=== PATIENT | male | born 1960 | race Caucasian/White ===

== ENCOUNTER 2018-05-18 05:12 | Inpatient (IN) | payer BC ==
--- NOTE | 2018-05-18 05:17 | PDOC ---
History of Present Illness - General Chief Complaint: Pain, Acute Stated Complaint: ABD PAIN/N/V Time Seen by Provider: 05/18/18 05:17 History Source: Patient Exam Limitations: No Limitations - History of Present Illness Initial Comments: 05/18/18 05:41 Pt presents to the ED complaining of a one day history of L sided abdominal pain , nausea and vomiting. Pain is localized to the left side and is worse in his LLQ. He describes the pain as severe, stabbing and constant. Patient is also complaining of multiple episodes of billious vomiting. States that his last BM was two days ago and he is uncertain if he passed gas yesterday. Denies history of abdominal surgeries. Denies testicular pain. Denies urinary complaints. 05/18/18 06:04 05/18/18 06:05 Past History - Past Medical History Allergies/Adverse Reactions: Allergies Allergy/AdvReac Type Severity Reaction Status Date / Time heparin Allergy Intermediate Rash Verified 05/22/18 00:16 Home Medications: Ambulatory Orders Levothyroxine [Synthroid -] 125 mcg PO DAILY 05/18/18 Amox-Tr/K Cl [Augmentin - 875Mg Tablet] 1 tab PO BID #20 tablet 05/22/18 Review of Systems - Review of Systems Able to Perform ROS?: Yes Is the patient limited Spanish proficient: No Constitutional: Yes: Malaise HEENTM: No: Eye Pain, Blurred Vision, Tearing, Recent change in vision, Double Vision, Cataracts, Ear Pain, Ocular Prothesis, Ear Discharge, Nose Pain, Nose Congestion, Tinnitus, Nose Bleeding, Hearing Loss, Throat Pain, Throat Swelling , Mouth Pain, Dental Problems, Difficulty Swallowing, Mouth Swelling, Other Respiratory: No: Cough, Orthopnea, Shortness of Breath, SOB with Exertion, SOB at Rest, Stridor, Wheezing, Productive cough, Hemoptysis, Other Cardiac (ROS): No: Chest Pain, Edema, Irregular Heart Rate, Lightheadedness, Palpitations, Syncope, Chest Tightness, Other ABD/GI: Yes: Constipated, Nausea, Vomiting, Abdominal cramping : No: Burning, Dysuria, Discharge, Frequency, Flank Pain, Hematuria, Incontinence, Pain, Urgency, Testicular Mass, Testicular Swelling, Lesions, Testicular Pain, Other Musculoskeletal: No: Back Pain, Gout, Joint Pain, Joint Swelling, Muscle Pain, Muscle Weakness, Neck Pain, Joint Stiffness, Other All Other Systems: Reviewed and Negative *Physical Exam - Physical Exam General Appearance: Yes: Nourished, Appropriately Dressed, Moderate Distress HEENT: positive: Normal ENT Inspection, Normal Voice Neck: positive: Supple Respiratory/Chest: positive: Lungs Clear, Normal Breath Sounds Cardiovascular: positive: Regular Rhythm, Regular Rate, S1, S2 Gastrointestinal/Abdominal: positive: Tender (diffuse left sided tenderness without guarding or rebound. extremely tender in the LLQ), Soft Musculoskeletal: positive: Normal Inspection. negative: CVA Tenderness, CVA Tenderness (R), CVA Tenderness (L), Decreased Range of Motion, Muscle Spasm, Vertebral Tenderness, Other Extremity: positive: Normal Inspection, Normal Range of Motion Integumentary: positive: Normal Color, Dry, Warm Neurologic: positive: belt sander stone II-XII NML intact, Fully Oriented, Alert, Normal Mood/ Affect ED Treatment Course - LABORATORY CBC & Chemistry Diagram: 05/22/18 07:15 05/22/18 07:15 Medical Decision Making - Medical Decision Making 05/18/18 06:07 Pt presents to the ED complaining of the acute onset of severe LLQ pain, nausea and vomiting. Tender in the LLQ. Differential includes diverticulitis, abscess, intestinal obstruction, less likely gastroenteritis or urinary infection. Will check labs and CT abdomen pelvis to evaluate for intraabdominal pathology. Will give pain and nausea control and reassess. *DC/Admit/Observation/Transfer Diagnosis at time of Disposition: Diverticulitis - Discharge Dispostion Condition at time of disposition: Stable Decision to Admit order: Yes - Prescriptions - Referrals - Patient Instructions - Post Discharge Activity
[2018-05-18] MEDS ORDERED: morphine CARPU-JECT 4 MG/1 ML DISP.SYRIN IVPUSH ONE ×2 (05:38→07:42)
[2018-05-18] MEDS ORDERED: ONDANSETRON 4 MG/2 ML VIAL IVPUSH ONE (05:40)
[2018-05-18] MEDS ORDERED: morphine CARPU-JECT 10 MG/1 ML DISP.SYRIN ONE (05:42)
[2018-05-18] MEDS ORDERED: ONDANSETRON 4 MG/2 ML VIAL ONE (05:42)
[2018-05-18 06:43] LABS: BASO % 0.5 % (0-2.0); EOS % 0.2 % (0-4.5); HEMOGLOBIN 16.4 GM/dL (11.7-16.9); LYMPH % 8.6 % (8-40); MCH 31.9 pg (25.7-33.7); MCHC 34.8 g/dl (32.0-35.9); MEAN CELL VOLUME 91.8 fl (80-96); MEAN PLT VOLUME 9.2 fl (7.5-11.1); MONO % 6.7 % (3.8-10.2); PLATELET COUNT 300 K/MM3 (134-434); RBC 5.13 M/mm3 (4.00-5.60); RDW 13.3 % (11.9-15.9); WHITE BLOOD COUNT 28.5 K/mm3 (4.0-10.0)
[2018-05-18 07:15] LABS: ALBUMIN 3.4 g/dl (3.4-5.0); ALK PHOS 59 U/L (45-117); ANION GAP 13 MMOL/L (8-16); BILIRUBIN,TOTAL 1.5 mg/dL (0.2-1); BLOOD UREA NITROGEN 15 mg/dL (7-18); CALCIUM 8.6 mg/dL (8.5-10.1); CHLORIDE 103 mmol/L (98-107); CO2 21 mmol/L (21-32); GLUCOSE,RANDOM 109 mg/dL (74-106); LIPASE 163 U/L (73-393); POTASSIUM 3.4 mmol/L (3.5-5.1); SGOT/AST 14 U/L (15-37); SGPT/ALT 23 U/L (13-61); SODIUM 137 mmol/L (136-145); TOT PROT 6.8 g/dl (6.4-8.2)
[2018-05-18] MEDS ORDERED: morphine SULFATE 4 MG/ML VIAL ONE (07:47)
[2018-05-18] MEDS ORDERED: SODIUM CHLORIDE 0.9% 1000 ML INFUS.BAG IV ONE (08:13)
[2018-05-18] MEDS ORDERED: ACETAMINOPHEN 1000 MG/100 ML VIAL (NON FORMULARY) IVPB ONE (08:14)
[2018-05-18] MEDS ORDERED: ACETAMINOPHEN INJECTION 100 ML IVPB ONE (08:18)
--- NOTE | 2018-05-18 08:27 | PDOC ---
*Physical Exam - Vital Signs Last Vital Signs Temp Pulse Resp BP Pulse Ox 99.4 F 117 H 20 129/88 97 05/18/18 07:49 05/18/18 07:49 05/18/18 05:17 05/18/18 07:49 05/18/18 07:49 - Physical Exam General Appearance: Yes: Nourished Neck: positive: Other Respiratory/Chest: positive: Normal Breath Sounds Cardiovascular: positive: Regular Rhythm, S1, S2 Gastrointestinal/Abdominal: positive: Tender (llq ttp ) Extremity: positive: Normal Inspection Integumentary: positive: Normal Color, Dry, Warm Neurologic: positive: Fully Oriented, Alert Heart Score/ECG Review #1 General ECG Interpretation: Sinus Rhythm, Normal Rate (98), Normal Intervals, No acute ischemic changes ED Treatment Course - LABORATORY CBC & Chemistry Diagram: 05/18/18 06:02 05/18/18 06:02 - ADDITIONAL ORDERS Additional order review: Laboratory Results 05/18/18 05/18/18 06:02 06:02 Sodium 137 Potassium 3.4 L Chloride 103 Carbon Dioxide 21 Anion Gap 13 BUN 15 Creatinine 1.0 Creat Clearance w eGFR > 60 Random Glucose 109 H Lactic Acid 0.7 Calcium 8.6 Total Bilirubin 1.5 H AST 14 L ALT 23 Alkaline Phosphatase 59 Total Protein 6.8 Albumin 3.4 Lipase 163 05/18/18 06:02 RBC 5.13 MCV 91.8 MCHC 34.8 RDW 13.3 D MPV 9.2 Neutrophils % 84.0 H Lymphocytes % 8.6 Monocytes % 6.7 Eosinophils % 0.2 Basophils % 0.5 - Medications Given in the ED: ED Medications Discontinued Medications Generic Name Dose Route Start Last Admin Trade Name Dwightq PRN Reason Stop Dose Admin Acetaminophen 1,000 mg 05/18/18 08:14 05/18/18 08:19 Ofirmev Injection - IVPB 05/18/18 08:15 1,000 mg ONCE ONE Administration Morphine Sulfate 6 mg 05/18/18 05:38 05/18/18 05:46 Morphine Injection - IVPUSH 05/18/18 05:39 6 mg ONCE ONE Administration Morphine Sulfate 4 mg 05/18/18 07:42 05/18/18 07:48 Morphine Injection - IVPUSH 05/18/18 07:43 4 mg ONCE ONE Administration Ondansetron HCl 4 mg 05/18/18 05:40 05/18/18 05:46 Zofran Injection IVPUSH 05/18/18 05:41 4 mg ONCE ONE Administration Medical Decision Making - Medical Decision Making 05/18/18 08:25 58 yo male here with llq pain, constipation. signed out by dr arreaga, at [address] /p and labs. on my exam, pt with mild pain, mild tachycardia, and llq ttp on abd exam. awaiting ct a/p WBC with 28, ua pending. pt low grade temp 99. will give iv hydration, tylenol and zosyn. lactate and cultures added due to concerns for sepsis, likely diverticulitis possible perf or abscess. 05/18/18 12:[address] with diverticulitis, no abscess. due to high wbc, and tachycardia concerns for sepsis will admit for observation, given zosyn. d/w dr. palacios to inform of admission covering for dr ramirez. Dr Jensen paged for admission. 05/18/18 13:36 dr jensen paged for admission *DC/Admit/Observation/Transfer Diagnosis at time of Disposition: Diverticulitis - Discharge Dispostion Condition at time of disposition: Stable Decision to Admit order: Yes - Referrals - Patient Instructions - Post Discharge Activity
[2018-05-18] MEDS ORDERED: PIPERACILLIN/TAZOB 3.375 GM 3.375 GM in DEXTROSE 5%-WATER - 50 ML IVPB ONE (08:32)
[2018-05-18 08:34] LABS: PH,URINE 8.5 (4.5-8); URINE APPEARANCE Clear; URINE BILIRUBIN 1+ (NEGATIVE); URINE COLOR Yellow; URINE GLUCOSE (UA) Negative (NEGATIVE); URINE KETONE 4+ (NEGATIVE); URINE LEUK ESTERASE Negative (NEGATIVE); URINE NITRITE Negative (NEGATIVE); URINE PROTEIN 1+ (NEGATIVE)
[2018-05-18] MEDS ORDERED: PIPERACILLIN/TAZOBACTAM 3.375 GM VIAL IVPB ONE ×2 (08:51→17:14)
[2018-05-18 09:10] LABS: EPI CELLS 1+ /HPF
[2018-05-18 09:11] LABS: URINE BACTERIA NONE SEEN /hpf (NEGATIVE)
[2018-05-18 10:19] LABS: ACTIVATED PTT 24.2 SECONDS (25.2-36.5)
[2018-05-18 10:23] LABS: INR 1.3 (0.82-1.09); PROTHROMBIN TIME (PATIENT) 14.5 SEC (10.2-13.0)
[2018-05-18 11:14] LABS: ANISOCYTOSIS 0; MACROCYTOSIS 0; PLATELET ESTIMATE NORMAL
[2018-05-18] MEDS: SODIUM CHLORIDE 1,000 ML IV SCH (14:01)
[2018-05-18] MEDS ORDERED: MORPHINE SULFATE 2 MG/ML VIAL IVPUSH PRN (14:10)
--- NOTE | 2018-05-18 14:35 | HP ---
CHIEF COMPLAINT: PCP: HISTORY OF PRESENT ILLNESS: Tello Keyes is a 58 yr old M, medical condition Hypothyroidism, presents to the ED complaining of a one day history of L sided abdominal pain, nausea and vomiting. Pain is localized to the left side and is worse in his LLQ. He describes the pain as severe, stabbing and constant. pt seen at bedside, c/o nausea, spitting up bile. pt also c/o headache, no BM x 2 days ER course was notable for: (1)WBC 28 (2)CT abd -diverticulitis, no obstruction, abscess (3)tender on abd exam Recent Travel: PAST MEDICAL HISTORY:Hypothyrodism PAST SURGICAL HISTORY:hip replacements 2000, 2016 Social History: Smoking:denies Alcohol:social Drugs: Denies Family History: Allergies No Known Allergies Allergy (Unverified 05/18/18 05:15) HOME MEDICATIONS: Home Medications Medication Instructions Recorded Levothyroxine [Synthroid -] 125 mcg PO DAILY 05/18/18 REVIEW OF SYSTEMS CONSTITUTIONAL: Absent: fever, chills, diaphoresis, generalized weakness, malaise, loss of appetite, weight change HEENT: Absent: rhinorrhea, nasal congestion, throat pain, throat swelling, difficulty swallowing, mouth swelling, ear pain, eye pain, visual changes CARDIOVASCULAR: Absent: chest pain, syncope, palpitations, irregular heart rate, lightheadedness , peripheral edema RESPIRATORY: Absent: cough, shortness of breath, dyspnea with exertion, orthopnea, wheezing, stridor, hemoptysis GASTROINTESTINAL:+ LLQ pain, nausea, vomiting, constipation Absent: melena, hematochezia GENITOURINARY: Absent: dysuria, frequency, urgency, hesitancy, hematuria, flank pain, genital pain MUSCULOSKELETAL: Absent: myalgia, arthralgia, joint swelling, back pain, neck pain SKIN: Absent: rash, itching, pallor HEMATOLOGIC/IMMUNOLOGIC: Absent: easy bleeding, easy bruising, lymphadenopathy, frequent infections ENDOCRINE: Absent: unexplained weight gain, unexplained weight loss, heat intolerance, cold intolerance NEUROLOGIC: +headache Absent: focal weakness or paresthesias, dizziness, unsteady gait, seizure, mental status changes, bladder or bowel incontinence PSYCHIATRIC: Absent: anxiety, depression, suicidal or homicidal ideation, hallucinations. PHYSICAL EXAMINATION Vital Signs - 24 hr 05/18/18 05/18/18 05/18/18 05:17 07:49 12:05 Temperature 98.2 F 99.4 F 98.6 F Pulse Rate 114 H Pulse Rate [ 117 H 101 H Left] Respiratory 20 20 Rate Blood Pressure 162/101 H Blood Pressure 129/88 146/99 [Right Arm] O2 Sat by Pulse 99 97 95 Oximetry (%) GENERAL: Awake, alert, and fully oriented, in no acute distress. HEAD: Normal with no signs of trauma. EYES: Pupils equal, round and reactive to light, extraocular movements intact, sclera anicteric, conjunctiva clear. No lid lag. EARS, NOSE, THROAT: Ears normal, nares patent, oropharynx clear without exudates. Moist mucous membranes. NECK: Normal range of motion, supple without lymphadenopathy, JVD, or masses. LUNGS: Breath sounds equal, clear to auscultation bilaterally. No wheezes, and no crackles. No accessory muscle use. HEART: Regular rate and rhythm, normal S1 and S2 without murmur, rub or gallop. ABDOMEN: Soft, nontender, not distended, normoactive bowel sounds, no guarding, no rebound, no masses. No hepatomegaly or splenomegaly. MUSCULOSKELETAL: Normal range of motion at all joints. No bony deformities or tenderness. No CVA tenderness. UPPER EXTREMITIES: 2+ pulses, warm, well-perfused. No cyanosis. No clubbing. No peripheral edema. LOWER EXTREMITIES: 2+ pulses, warm, well-perfused. No calf tenderness. No peripheral edema. NEUROLOGICAL: Cranial nerves II-XII intact. Normal speech. Normal gait. PSYCHIATRIC: Cooperative. Good eye contact. Appropriate mood and affect. SKIN: Warm, dry, normal turgor, no rashes or lesions noted, normal capillary refill. Laboratory Results - last 24 hr 05/18/18 05/18/18 05/18/18 06:02 06:02 06:02 WBC 28.5 H RBC 5.13 Hgb 16.4 Hct 47.0 MCV 91.8 MCH 31.9 MCHC 34.8 RDW 13.3 D Plt Count 300 MPV 9.2 Absolute Neuts (auto) 24.0 H Neutrophils % 84.0 H Neutrophils % (Manual) 70.6 Band Neutrophils % 7.8 Lymphocytes % 8.6 Lymphocytes % (Manual) 1.0 L Monocytes % 6.7 Monocytes % (Manual) 11 H Eosinophils % 0.2 Eosinophils % (Manual) 0.0 Basophils % 0.5 Basophils % (Manual) 0.0 Myelocytes % (Man) 1 Promyelocytes % (Man) 0 Blast Cells % (Manual) 0 Nucleated RBC % 0 Metamyelocytes 0 Hypochromia 0 Platelet Estimate Normal Platelet Comment Present Polychromasia 0 Poikilocytosis 0 Anisocytosis 0 Microcytosis 0 Macrocytosis 0 PT with INR INR PTT (Actin FS) Sodium 137 Potassium 3.4 L Chloride 103 Carbon Dioxide 21 Anion Gap 13 BUN 15 Creatinine 1.0 Creat Clearance w eGFR > 60 Random Glucose 109 H Lactic Acid 0.7 Calcium 8.6 Total Bilirubin 1.5 H AST 14 L ALT 23 Alkaline Phosphatase 59 Total Protein 6.8 Albumin 3.4 Lipase 163 Urine Color Urine Appearance Urine pH Ur Specific [place] Urine Protein Urine Glucose (UA) Urine Ketones Urine Blood Urine Nitrite Urine Bilirubin Urine Urobilinogen Ur Leukocyte Esterase Urine RBC Urine WBC Ur Epithelial Cells Urine Bacteria 05/18/18 05/18/18 07:32 09:09 WBC RBC Hgb Hct MCV MCH MCHC RDW Plt Count MPV Absolute Neuts (auto) Neutrophils % Neutrophils % (Manual) Band Neutrophils % Lymphocytes % Lymphocytes % (Manual) Monocytes % Monocytes % (Manual) Eosinophils % Eosinophils % (Manual) Basophils % Basophils % (Manual) Myelocytes % (Man) Promyelocytes % (Man) Blast Cells % (Manual) Nucleated RBC % Metamyelocytes Hypochromia Platelet Estimate Platelet Comment Polychromasia Poikilocytosis Anisocytosis Microcytosis Macrocytosis PT with INR 14.5 H INR 1.30 H PTT (Actin FS) 24.2 L Sodium Potassium Chloride Carbon Dioxide Anion Gap BUN Creatinine Creat Clearance w eGFR Random Glucose Lactic Acid Calcium Total Bilirubin AST ALT Alkaline Phosphatase Total Protein Albumin Lipase Urine Color Yellow Urine Appearance Clear Urine pH 8.5 H D Ur Specific [place] 1.020 Urine Protein 1+ H Urine Glucose (UA) Negative Urine Ketones 4+ H Urine Blood Negative Urine Nitrite Negative Urine Bilirubin 1+ H Urine Urobilinogen 1.0 Ur Leukocyte Esterase Negative Urine RBC 2-5 Urine WBC 2-5 Ur Epithelial Cells 1+ Urine Bacteria None seen ASSESSMENT/PLAN: Tello Keyes is a 58 yr old M, medical condition Hypothyroidism, admitted for Admitting Diagnosis Acute diverticulitis Chronic Problems Hypothyroidism A/P #Acute diverticulitis -WBC 28, lactic wnl, afebrile -Tele monitoring -NPO -pain mgt, antiemetics -IV zosyn -lactic wnl -IVF -blood cx pending -CT abd no obstructin, abscess #Hypothyroidism -resume synthroid Full Code DVT prophylaxis Heparin SQ FEN: Fluids IVF Electrolyte replete as needed Nutrition IVF, adv as tolerated Dispo: requires inpatient treatment Visit type - Emergency Visit Emergency Visit: Yes ED Registration Date: 05/18/18 Care time: The patient presented to the Emergency Department on the above date and was hospitalized for further evaluation of their emergent condition. - New Patient This patient is new to me today: Yes Date on this admission: 05/18/18 - Critical Care Critical Care patient: No
--- NOTE | 2018-05-18 15:42 | EKG ---
Test Reason : Blood Pressure : / mmHG Vent. Rate : 098 BPM Atrial Rate : 098 BPM P-R Int : 124 ms QRS Dur : 078 ms QT Int : 332 ms P-R-T Axes : 048 -02 -11 degrees QTc Int : 423 ms NORMAL SINUS RHYTHM NORMAL ECG WHEN COMPARED WITH ECG OF 07-JAN-2014 16:38, NO SIGNIFICANT CHANGE WAS FOUND Confirmed by MARIA DOLORES MACIAS MD ([id number]) on 05/18/2018 3:42:13 PM Referred By: KAELA PAULA Confirmed By:MARIA DOLORES MACIAS MD
[2018-05-18] MEDS: ACETAMINOPHEN 325 MG TABLET (FP) PO PRN (16:51)
[2018-05-18 17:07] VITALS: BMI 29.7
[2018-05-18] MEDS ORDERED: DEXTROSE 5%-WATER - 50 ML IVPB ONE (17:14)
[2018-05-18] MEDS: PIPERACILLIN/TAZOB 3.375 GM 3.375 GM in DEXTROSE 5%-WATER - 50 ML IVPB SCH (17:24)
[2018-05-18] MEDS ORDERED: PIPERACILLIN/TAZOB 3.375 GM 3.375 GM in DEXTROSE 5%-WATER - 50 ML IVPB SCH (18:00)
[2018-05-18] MEDS ORDERED: PIPERACILLIN/TAZOB 2.25 GM 2.25 GM in DEXTROSE 5%-WATER - 50 ML IVPB SCH (18:00)
[2018-05-18] MEDS: HEPARIN NA (PORCINE) 5,000 UNITS/ML 1ML VIAL SQ SCH (21:58)
[2018-05-18] MEDS ORDERED: morphine CARPU-JECT 2 MG/1 ML DISP.SYRIN ONE (21:59)
[2018-05-18] MEDS ORDERED: HEPARIN NA (PORCINE) 5,000 UNITS/ML 1ML VIAL SQ SCH ×2 (22:00)
[2018-05-19] MEDS: PIPERACILLIN/TAZOB 3.375 GM 3.375 GM in DEXTROSE 5%-WATER - 50 ML IVPB SCH ×3 (02:05→17:55)
[2018-05-19] MEDS: ONDANSETRON 4 MG/2 ML VIAL IVPUSH PRN ×3 (02:25→19:56)
[2018-05-19] MEDS ORDERED: PIPERACILLIN/TAZOBACTAM 3.375 GM VIAL IVPB ONE ×3 (03:10→16:06)
[2018-05-19] MEDS ORDERED: DEXTROSE 5%-WATER - 50 ML IVPB ONE ×3 (03:10→16:06)
[2018-05-19] MEDS: ACETAMINOPHEN 325 MG TABLET (FP) PO PRN ×2 (05:36→12:57)
[2018-05-19] MEDS: LEVOTHYROXINE NA 125 MCG TABLET (FP) PO SCH (06:13)
[2018-05-19 08:19] LABS: HEMATOCRIT 42.7 % (35.4-49); HEMOGLOBIN 14.4 GM/dl (11.7-16.9); MCH 32.1 pg (25.7-33.7); MCHC 33.8 g/dl (32.0-35.9); MEAN CELL VOLUME 94.9 fl (80-96); MEAN PLT VOLUME 9.6 fl (7.5-11.1); PLATELET COUNT 249 K/MM3 (134-434); RBC 4.51 M/mm3 (4.00-5.60); RDW 12.8 % (11.9-15.9); WHITE BLOOD COUNT 17.3 K/mm3 (4.0-10.8)
[2018-05-19 08:32] LABS: ALBUMIN 2.8 g/dl (3.4-5.0); ALK PHOS 66 U/L (45-117); ANION GAP 10 MMOL/L (8-16); BILIRUBIN,TOTAL 1.5 mg/dl (0.2-1); BLOOD UREA NITROGEN 11 mg/dl (7-18); CALCIUM 8.4 mg/dl (8.5-10); CHLORIDE 104 mmol/L (98-107); CO2 21 mmol/L (21-32); CREATININE 0.9 mg/dl (0.55-1.3); MAGNESIUM 2.1 mg/dL (1.8-2.4); POTASSIUM 3.8 mmol/L (3.5-5.1); SGOT/AST 18 U/L (15-37); SGPT/ALT 16 U/L (13-61); SODIUM 135 mmol/L (136-145); TOT PROT 5.8 g/dl (6.4-8.2)
[2018-05-19 08:55] LABS: GLUCOSE,RANDOM 90 mg/dl (74-106)
--- NOTE | 2018-05-19 09:31 | PN ---
Progress Note (short form) - Note Progress Note: ID CONSULT DICTATED ACUTE DIVERTICULITIS LEUKOCYTOSIS R/O SEPSIS SECONDARY TO DIVERTICULITIS AWAIT C/S EMPIRIC ZOSYN
[2018-05-19] MEDS: HEPARIN NA (PORCINE) 5,000 UNITS/ML 1ML VIAL SQ SCH ×2 (10:04→21:05)
--- NOTE | 2018-05-19 11:53 | CONS ---
DATE OF CONSULTATION: DATE OF DICTATION: 05/19/2018 HISTORY: The patient is a 58-year-old male who was evaluated for acute diverticulitis. He presented to the hospital on May 18, 2018 with a 1-day history of worsening left lower quadrant abdominal pain, nausea, and vomiting. The patient states he was well on May 17. He developed worsening right lower quadrant abdominal pain described as sharp and localized to the right lower quadrant associated with nausea and bilious vomiting. The patient attributed his symptoms initially to constipation. His last bowel movement was Wednesday, May 16, 2018. Pain became progressively worse. He presented to the emergency room where he was found to have acute left lower quadrant abdominal tenderness. He was also noted to have a markedly elevated white blood cell count. A CAT scan of the abdomen and pelvis was obtained and showed thickening of the distal and descending colon consistent with acute diverticulitis. No perforation or abscess was noted. He was empirically treated with Zosyn. The patient denies a prior history of diverticulitis. He underwent a colonoscopy 5 years ago, which he reports was normal. He denies any diarrhea. No emily red blood per rectum or melena. No hematemesis or vomiting of emily red blood. He denies any associated fever or chills. PAST MEDICAL HISTORY: Positive for hypothyroidism. PAST SURGICAL HISTORY: Status post hip replacement. MEDICATIONS: Tylenol, heparin, Synthroid, morphine, Zosyn. SOCIAL HISTORY: He resides in the community. He is a nonsmoker. Occasional ETOH. SYSTEMS REVIEW: Neurologic: No loss of consciousness, seizure activity, focal weakness. Cardiac: Negative chest pain or palpitations. Respiratory: Negative cough or sputum production. Gastrointestinal: As per HPI. Genitourinary: Negative for urinary tract infection. LABORATORY DATA: White count on admission 28,000 with left shift, hematocrit 42.7, platelet count 249, creatinine 0.9. Urinalysis, 2-5 white cells. Blood cultures pending. Total bilirubin 1.5, alkaline phosphatase 66, AST 18. PHYSICAL EXAMINATION: General: He is awake and alert. He is in moderate distress secondary to left lower quadrant abdominal pain. Vital Signs: Temperature 98.6, blood pressure 144/82, pulse 80 and regular, respirations 18 per minute. HEENT: Sclerae anicteric. Heart: Sounds S1, S2. Lungs: Clear. Abdomen: Positive bowel sounds. There is tenderness to palpation with fullness left lower quadrant. No mass, rebound, or rigidity. No palpable liver or spleen. Extremities: Negative for edema. IMPRESSION: 1. Acute diverticulitis. 2. Leukocytosis, rule out sepsis secondary to diverticulitis. The patient at this time appears to have uncomplicated diverticulitis without evidence of perforation or abscess formation. Await cultures. Continue empiric coverage of abdominal pathogen with Zosyn. GI evaluation. Analgesics. Thank you for the kind referral. AIDA COUGHLIN M.D. [id number]
--- NOTE | 2018-05-19 12:08 | CONSULT ---
- Consultation REQUESTING PROVIDER: Rich Mcmillan - General Surgery CONSULT REQUEST: We have been asked to surgically evaluate this patient for LLQ ABD pain PCP: Gertrudis Caldwell NP HPI: Called to dayna 58 yo male with PMHx as noted below. Comes to [facility] ER w/ c/o acute left sided abd pain x1 day. States upon admission to ER he was n/v. Ate popcorn the day before onset of symptoms. Never experienced this before. Abd pain initially was 01/22. Currently, it's 09/22. Patient had CT scan in ER which identified acute diverticulitis without perforation or abscess formation. Last BM was three days ago. Currently NPO. ID consult appreciated and started patient on Zosyn. Denies CP, palpitations, SOB or HOWELL. Denies abdominal distension, diarrhea, constipation, melena or hematochezia. Denies dysuria, hematuria, CVAT, bladder or bowel incontinence. PMHx: Hypothyroid PSHx: Denies. Home Meds Levothyroxine 125 mcg PO daily Allergies: NKDA ROS: CONSTITUTIONAL: Absent: fdiaphoresis, generalized weakness, malaise, weight change CARDIOVASCULAR: Absent: syncope, palpitations, irregular heart rate, lightheadedness, peripheral edema RESPIRATORY: Absent: cough, wheezing, stridor, hemoptysis GASTROINTESTINAL:Absent: see hpi. GENITOURINARY: Absent: frequency, urgency, hesitancy, flank pain, genital pain MUSCULOSKELETAL: Absent: myalgia, arthralgia, joint swelling, back pain, neck pain SKIN: Absent: rash, itching, pallor HEMATOLOGIC/IMMUNOLOGIC: Absent: easy bleeding, easy bruising, lymphadenopathy NEUROLOGIC: Absent: headache, focal weakness, paresthesias, dizziness, seizure, mental status changes. PSYCHIATRIC: Absent: anxiety, depression, suicidal or homicidal ideation, hallucinations. PE: GENERAL: Awake, alert, and fully oriented, NAD HEAD: Normal with no signs of trauma. EYES: PERRL, sclera anicteric, conjunctiva clear. NECK: Normal ROM, supple without lymphadenopathy, JVD, or masses. LUNGS: CTA bilat HEART:RRR. No murmurs detected. ABDOMEN: hypoactive bowel sounds. + LLQ tenderness to light palpation. + guarding. No rigidity. No organomegaly. MUSCULOSKELETAL: Negative CVA tenderness bilat UE: 2+ pulses, warm, well-perfused. No cyanosis. Cap refill <2 seconds. No peripheral edema. LE: 2+ pulses, warm, well-perfused. No calf tenderness. No peripheral edema. NEURO: Normal speech, gait not observed. PSYCH: Cooperative. Good eye contact. Appropriate mood and affect. SKIN: Warm, dry, normal turgor, no rashes or lesions noted. Last Vital Signs Temp Pulse Resp BP Pulse Ox 98.6 F 80 18 144/82 98 05/19/18 09:01 05/19/18 09:01 05/19/18 09:01 05/19/18 09:01 05/19/18 08:57 WBC TREND 05/18/18 05/19/18 06:02 07:15 WBC 28.5 H 17.3 H BMP 05/19/18 07:15 INR, PTT INR 1.30 (0.82-1.09) H 05/18/18 09:09 Urine Test Results Urine Color Yellow 05/18/18 07:32 Urine Appearance Clear 05/18/18 07:32 Urine pH 8.5 (4.5-8) H D 05/18/18 07:32 Ur Specific [place] 1.020 (1.010-1.035) 05/18/18 07:32 Urine Protein 1+ (NEGATIVE) H 05/18/18 07:32 Urine Glucose (UA) Negative (NEGATIVE) 05/18/18 07:32 Urine Ketones 4+ (NEGATIVE) H 05/18/18 07:32 Urine Blood Negative (NEGATIVE) 05/18/18 07:32 Urine Nitrite Negative (NEGATIVE) 05/18/18 07:32 Urine Bilirubin 1+ (NEGATIVE) H 05/18/18 07:32 Ur Leukocyte Esterase Negative (NEGATIVE) 05/18/18 07:32 Urine RBC 2-5 /hpf (0-3) 05/18/18 07:32 Urine WBC 2-5 (0-2) 05/18/18 07:32 Ur Epithelial Cells 1+ /HPF 05/18/18 07:32 Urine Bacteria None seen /hpf (NEGATIVE) 05/18/18 07:32 Microbiology 05/18/18 09:21 Blood - Peripheral Venous Blood Culture - Preliminary NGTD AFTER 24 HOURS, INCUBATION TO CONTINUE FOR 4 DAYS. Problem List - Problems (1) Diverticulitis Assessment/Plan: 58 yo male admitted with 1st episode of acute diverticulitis. Leukocytosis. NPO IVF GI PPX DVT PPX Zosyn per ID Serial ABD exams Trend WBC Tylenol 650 mg for fever > 100.3F Pain management Colace OOB and ambulate Recommend Nutrition Consult --> General Farm Manager/Educate patient on their new diagnosis of Diverticulitis with regards to foods Surgery Team to cont following Cont conservative managment at this time. Above plan discussed with Dr. Mcmillan and agrees. Code(s): K57.92 - DVTRCLI OF INTEST, PART UNSP, W/O PERF OR ABSCESS W/O BLEED
--- NOTE | 2018-05-19 12:17 | PN ---
Progress Note (short form) - Note Progress Note: Patient seen and chart reviewed with consult dictated. Patient with acute left- sided/sigmoid diverticulitis. Improving on IV antibiotics but still with moderate left sided tenderness. WBC 17K but improved from 24K VSS Abdomen soft +BS +tender LLQ ?mild rebound CT c/w left sided diverticulitis without abscess Imp: Acute left sided diverticulitis; appears to be slowly improving on IV antibiotics. Would continue antibiotics, allow sips of water/ice chips and monitor WBC/abd exam Will follow.
[2018-05-19] MEDS: SODIUM CHLORIDE 1,000 ML IV SCH ×2 (12:57→17:55)
--- NOTE | 2018-05-19 15:49 | PN ---
Physical Exam: SUBJECTIVE: Patient seen and examined at bedside. LLQ pain persists, worse with movement. OBJECTIVE: Vital Signs Period Temp Pulse Resp BP Sys/Wise Pulse Ox Last 24 Hr 97.8 F-99.1 F 80-99 18-20 134-144/68-84 95-98 GENERAL: The patient is awake, alert, and fully oriented, in no acute distress. LUNGS: Breath sounds equal, clear to auscultation bilaterally, no wheezes, no crackles, no accessory muscle use. HEART: Regular rate and rhythm, S1, S2 without murmur, rub or gallop. ABDOMEN: ++tenderness LLQ, +guarding EXTREMITIES: 2+ pulses, warm, well-perfused, no edema. NEUROLOGICAL: Cranial nerves II through XII grossly intact. Normal speech, gait not observed. Laboratory Results - last 24 hr 05/19/18 05/19/18 07:15 07:15 WBC 17.3 H RBC 4.51 Hgb 14.4 Hct 42.7 MCV 94.9 MCH 32.1 MCHC 33.8 RDW 12.8 Plt Count 249 D MPV 9.6 Sodium 135 L Potassium 3.8 Chloride 104 Carbon Dioxide 21 Anion Gap 10 BUN 11 Creatinine 0.9 Creat Clearance w eGFR > 60 Random Glucose 90 Calcium 8.4 L Magnesium 2.1 Total Bilirubin 1.5 H AST 18 ALT 16 Alkaline Phosphatase 66 Total Protein 5.8 L Albumin 2.8 L Active Medications Generic Name Dose Route Start Last Admin Trade Name Freq PRN Reason Stop Dose Admin Acetaminophen 650 mg 05/18/18 14:38 05/19/18 12:57 Tylenol - PO 650 mg Q4H PRN Administration PAIN LEVEL 1 - 3 Heparin Sodium (Porcine) 5,000 unit 05/18/18 22:00 05/19/18 10:04 Heparin - SQ 5,000 unit BID ARIADNA Administration Sodium Chloride 1,000 mls @ 100 mls/hr 05/18/18 14:00 05/19/18 12:57 Normal Saline - IV 100 mls/hr ASDIR ARIADNA Administration Piperacillin Sod/Tazobactam 50 mls @ 100 mls/hr 05/19/18 10:00 05/19/18 10:03 Sod 3.375 gm/ Dextrose IVPB 100 mls/hr Q8H-IV ARIADNA Administration Protocol Levothyroxine Sodium 125 mcg 05/19/18 07:00 05/19/18 06:13 Synthroid - PO 125 mcg DAILY@0700 ARIADNA Administration Morphine Sulfate 2 mg 05/19/18 07:45 Morphine Injection - IVPUSH Q3H PRN PAIN LEVEL 7 - 10 Ondansetron HCl 4 mg 05/18/18 14:17 05/19/18 12:39 Zofran Injection IVPUSH 4 mg Q6H PRN Administration NAUSEA AND/OR VOMITING ASSESSMENT/PLAN 58 year-old male with a PMH significant for hypothyroidism, admitted for sepsis secondary to acute diverticulitis. Sepsis secondary to acute diverticulitis --WBC 28.5, p114, acute diverticulitis on CT imaging --WBC trending down, has remained afebrile --continue Zosyn (day #2), blood cultures NGTD --NPO, IV fluids --ID following --surgery consult: conservative medical management for now Hypothyroidism --continue levothyroxine FEN Fluids: NS@100mL/hr Electrolytes: replete as indicated Nutrition: NPO DVT prophylaxis: subq heparin Dispo: continues to require inpatient care. Full code. Visit type - Emergency Visit Emergency Visit: Yes ED Registration Date: 05/18/18 Care time: The patient presented to the Emergency Department on the above date and was hospitalized for further evaluation of their emergent condition. - New Patient This patient is new to me today: Yes Date on this admission: 05/19/18 - Critical Care Critical Care patient: No
[2018-05-19] MEDS: morphine CARPU-JECT 2 MG/1 ML DISP.SYRIN IVPUSH PRN (21:05)
[2018-05-20] MEDS ORDERED: PIPERACILLIN/TAZOBACTAM 3.375 GM VIAL IVPB ONE ×4 (00:51→23:37)
[2018-05-20] MEDS: PIPERACILLIN/TAZOB 3.375 GM 3.375 GM in DEXTROSE 5%-WATER - 50 ML IVPB SCH ×3 (01:01→17:51)
[2018-05-20] MEDS: LEVOTHYROXINE NA 125 MCG TABLET (FP) PO SCH (06:41)
--- NOTE | 2018-05-20 06:55 | CONS ---
DATE OF CONSULTATION: 05/19/2018 REASON FOR CONSULTATION: I was asked to evaluate this 58-year-old gentleman admitted with left lower quadrant pain and CT scan consistent with diverticulitis. HISTORY OF PRESENT ILLNESS: The patient is a 60-year-old gentleman with a history of hypothyroidism. He developed acute onset of left lower quadrant pain the day prior to admission and was admitted via the emergency room with significant pain and a CT scan consistent with acute diverticulitis and no evidence of an abscess. The patient has not had any similar history of diverticulitis in the past. He reports having had a colonoscopy approximately 6 or 7 years ago and believes the study was unremarkable. He generally has regular bowel movements daily, and his appetite and weight were stable up until the current time. He has a family history notable for his brother having had colonic polyps and has a personal history of hypothyroidism. The patient was started on IV antibiotics. His initial white count was at 28.5, and his repeat today is 17.3. His hematocrit was 47 on admission and 42.7 at the present time. His electrolytes are within normal limits as are his liver chemistries. PHYSICAL EXAMINATION: General: The patient is a well-developed, well-nourished gentleman with pink conjunctiva. Lungs: Clear lungs. Cardiac: Regular rate and rhythm. . Abdomen: Soft abdomen with normoactive bowel sounds and moderate discomfort to palpation on the left side of the abdomen with mild rebound, but no guarding and no mass. IMPRESSION: Patient with acute diverticulitis involving the left and/or sigmoid colon without evidence of a collection or abscess on CT scan. White count improving on antibiotics as is his abdominal pain. Would continue current regimen and follow clinically. SHASTA FLORES M.D. [facility]/[id number]
[2018-05-20 07:41] LABS: BASO % 2.5 % (0-2.0); EOS % 0.9 % (0-4.5); HEMATOCRIT 39.5 % (35.4-49); LYMPH % 12.4 % (8-40); MCH 31.2 pg (25.7-33.7); MEAN CELL VOLUME 94.5 fl (80-96); MEAN PLT VOLUME 9.5 fl (7.5-11.1); MONO % 6.8 % (3.8-10.2); NEUT % 77.4 % (42.8-82.8); PLATELET COUNT 242 K/MM3 (134-434); RBC 4.18 M/mm3 (4.00-5.60); RDW 12.7 % (11.9-15.9); WHITE BLOOD COUNT 10.4 K/mm3 (4.0-10.8)
[2018-05-20 08:01] LABS: ALBUMIN 2.5 g/dl (3.4-5.0); ALK PHOS 91 U/L (45-117); ANION GAP 9 MMOL/L (8-16); BILIRUBIN,TOTAL 1.5 mg/dl (0.2-1); BLOOD UREA NITROGEN 12 mg/dl (7-18); CALCIUM 7.8 mg/dl (8.5-10); CHLORIDE 105 mmol/L (98-107); CO2 19 mmol/L (21-32); CREATININE 0.8 mg/dl (0.55-1.3); GLUCOSE,RANDOM 85 mg/dl (74-106); POTASSIUM 3.7 mmol/L (3.5-5.1); SGOT/AST 14 U/L (15-37); SGPT/ALT 17 U/L (13-61); SODIUM 133 mmol/L (136-145); TOT PROT 5.4 g/dl (6.4-8.2)
--- NOTE | 2018-05-20 08:08 | PN ---
Progress Note (short form) - Note Progress Note: 58yo M h/o diverticulitis, seen and examined at bedside. Pt states that abd pain is much improved but continues to complain of some LLQ abd pain. Denies n/ v, fever, chills. State still has not had a BM since Saturday. Last Vital Signs Temp Pulse Resp BP Pulse Ox 97.8 F 79 18 147/75 99 05/20/18 06:08 05/20/18 06:08 05/20/18 06:08 05/20/18 06:08 05/20/18 06:08 CBC, BMP 05/20/18 06:30 05/20/18 06:30 PE: Gen: A&O x3 Resp: breathing comfortably Abd: soft, nondistended, moderate LLQ tenderness Ext; no edema Problem List - Problems (1) Diverticulitis Assessment/Plan: Plan -Pt appears to be going in the right direction as far as pain and white count , would continue NPO as he is still fairly tender on exam, may consider adv diet tonight. -cont abx per med/ID -IV fluids -will follow Code(s): K57.92 - DVTRCLI OF INTEST, PART UNSP, W/O PERF OR ABSCESS W/O BLEED
[2018-05-20] MEDS ORDERED: DEXTROSE 5%-WATER - 50 ML IVPB ONE ×3 (08:49→23:37)
[2018-05-20] MEDS: HEPARIN NA (PORCINE) 5,000 UNITS/ML 1ML VIAL SQ SCH ×2 (09:16→21:10)
--- NOTE | 2018-05-20 09:31 | PN ---
Physical Exam: SUBJECTIVE: Patient seen and examined at bedside. Episode of nausea earlier and LLQ pain is still present. Not hungry. Urine looks concentrated. OBJECTIVE: Vital Signs Period Temp Pulse Resp BP Sys/Wise Pulse Ox Last 24 Hr 97.8 F-98.4 F 76-82 16-20 134-152/68-88 98-99 GENERAL: The patient is awake, alert, and fully oriented, in no acute distress. LUNGS: Breath sounds equal, clear to auscultation bilaterally, no wheezes, no crackles, no accessory muscle use. HEART: Regular rate and rhythm, S1, S2 without murmur, rub or gallop. ABDOMEN: ++tenderness LLQ, +guarding EXTREMITIES: 2+ pulses, warm, well-perfused, no edema. NEUROLOGICAL: Cranial nerves II through XII grossly intact. Normal speech, gait not observed. Laboratory Results - last 24 hr 05/20/18 05/20/18 06:30 06:30 WBC 10.4 RBC 4.18 Hgb 13.0 Hct 39.5 MCV 94.5 MCH 31.2 MCHC 33.0 RDW 12.7 Plt Count 242 MPV 9.5 Absolute Neuts (auto) 8.1 Neutrophils % 77.4 D Lymphocytes % 12.4 D Monocytes % 6.8 Eosinophils % 0.9 Basophils % 2.5 H Sodium 133 L Potassium 3.7 Chloride 105 Carbon Dioxide 19 L Anion Gap 9 BUN 12 Creatinine 0.8 Creat Clearance w eGFR > 60 Random Glucose 85 Calcium 7.8 L Magnesium 2.0 Total Bilirubin 1.5 H AST 14 L ALT 17 Alkaline Phosphatase 91 D Total Protein 5.4 L Albumin 2.5 L Active Medications Generic Name Dose Route Start Last Admin Trade Name Freq PRN Reason Stop Dose Admin Acetaminophen 650 mg 05/18/18 14:38 05/19/18 12:57 Tylenol - PO 650 mg Q4H PRN Administration PAIN LEVEL 1 - 3 Heparin Sodium (Porcine) 5,000 unit 05/18/18 22:00 05/20/18 09:16 Heparin - SQ 5,000 unit BID ARIADNA Administration Sodium Chloride 1,000 mls @ 100 mls/hr 05/18/18 14:00 05/19/18 17:55 Normal Saline - IV 100 mls/hr ASDIR ARIADNA Administration Piperacillin Sod/Tazobactam 50 mls @ 100 mls/hr 05/19/18 10:00 05/20/18 09:15 Sod 3.375 gm/ Dextrose IVPB 100 mls/hr Q8H-IV ARIADNA Administration Protocol Levothyroxine Sodium 125 mcg 05/19/18 07:00 05/20/18 06:41 Synthroid - PO 125 mcg DAILY@0700 ARIADNA Administration Morphine Sulfate 2 mg 05/19/18 07:45 05/19/18 21:05 Morphine Injection - IVPUSH 2 mg Q3H PRN Administration PAIN LEVEL 7 - 10 Ondansetron HCl 4 mg 05/18/18 14:17 05/19/18 19:56 Zofran Injection IVPUSH 4 mg Q6H PRN Administration NAUSEA AND/OR VOMITING ASSESSMENT/PLAN: 58 year-old male with a PMH significant for hypothyroidism, admitted for sepsis secondary to acute diverticulitis. Sepsis secondary to acute diverticulitis --WBC 28.5, p114, acute diverticulitis on CT imaging on admission --WBC has trended to wnl, has remained afebrile --still with significant LLQ tenderness --continue Zosyn (day #3), blood cultures NGTD --ID following --surgery consult: conservative medical management for now Hypothyroidism --continue levothyroxine FEN Fluids: NS@125mL/hr Electrolytes: replete as indicated Nutrition: trial of clears for dinner DVT prophylaxis: subq heparin Dispo: continues to require inpatient care. Full code. Visit type - Emergency Visit Emergency Visit: Yes ED Registration Date: 05/18/18 Care time: The patient presented to the Emergency Department on the above date and was hospitalized for further evaluation of their emergent condition. - New Patient This patient is new to me today: No - Critical Care Critical Care patient: No
[2018-05-20] MEDS: SODIUM CHLORIDE 1,000 ML IV SCH (12:11)
[2018-05-20] MEDS ORDERED: SODIUM CHLORIDE 1,000 ML IV SCH (12:18)
[2018-05-20] MEDS: morphine CARPU-JECT 2 MG/1 ML DISP.SYRIN IVPUSH PRN (21:10)
[2018-05-21] MEDS: PIPERACILLIN/TAZOB 3.375 GM 3.375 GM in DEXTROSE 5%-WATER - 50 ML IVPB SCH ×3 (01:06→17:19)
[2018-05-21] MEDS: LEVOTHYROXINE NA 125 MCG TABLET (FP) PO SCH (05:59)
[2018-05-21 07:18] LABS: BASO % 0.9 % (0-2.0); EOS % 2.5 % (0-4.5); HEMATOCRIT 41.2 % (35.4-49); HEMOGLOBIN 13.9 GM/dl (11.7-16.9); LYMPH % 17.6 % (8-40); MCH 31.8 pg (25.7-33.7); MCHC 33.9 g/dl (32.0-35.9); MEAN CELL VOLUME 93.8 fl (80-96); MEAN PLT VOLUME 8.5 fl (7.5-11.1); MONO % 8.4 % (3.8-10.2); NEUT % 70.6 % (42.8-82.8); PLATELET COUNT 286 K/MM3 (134-434); RBC 4.39 M/mm3 (4.00-5.60); RDW 12.4 % (11.9-15.9); WHITE BLOOD COUNT 8.6 K/mm3 (4.0-10.8)
[2018-05-21 07:30] LABS: ALBUMIN 2.6 g/dl (3.4-5.0); ALK PHOS 92 U/L (45-117); ANION GAP 8 MMOL/L (8-16); BILIRUBIN,TOTAL 1.1 mg/dl (0.2-1); BLOOD UREA NITROGEN 10 mg/dl (7-18); CALCIUM 8.1 mg/dl (8.5-10); CHLORIDE 104 mmol/L (98-107); CO2 24 mmol/L (21-32); CREATININE 0.8 mg/dl (0.55-1.3); GLUCOSE,RANDOM 94 mg/dl (74-106); MAGNESIUM 2.1 mg/dL (1.8-2.4); POTASSIUM 3.7 mmol/L (3.5-5.1); SGOT/AST 13 U/L (15-37); SGPT/ALT 17 U/L (13-61); SODIUM 136 mmol/L (136-145); TOT PROT 5.8 g/dl (6.4-8.2)
--- NOTE | 2018-05-21 07:31 | PN ---
Progress Note (short form) - Note Progress Note: - Note Progress Note: 58yo M being followed for diverticulitis, seen and examined at bedside. Pt states that abd pain continues to improve. He is tolerating his clear diet and had a non-bloody BM yesterday. He is OOB and denies any CP, SOB, n/v, fever, or chills. Vital Signs Temp 98.3 F 05/21/18 06:18 Pulse 67 05/21/18 06:18 Resp 18 05/21/18 06:18 BP 146/80 05/21/18 06:18 Pulse Ox 97 05/21/18 06:18 Intake & Output 05/20/18 05/20/18 05/21/18 11:59 23:59 11:59 Intake Total 4541 510 9440 Output Total 150 750 950 Balance 1500 100 100 Intake: IV 8494 915 1929 Normal Saline - 1,000 ml 807 479 2340 @ 100 mls/hr IV ASDIR ARIADNA Rx#:[id number] Normal Saline - 1,000 ml 500 @ 125 mls/hr IV ASDIR ARIADNA Rx#:[id number] SALINE 1200 IVPB 50 50 50 Oral 0 Output: Urine 150 750 950 Void 150 750 950 Other: Voiding Method Toilet Toilet # Unmeasured Voids Void 1 Bowel Movement Yes No # Bowel Movements 1 CBC, BMP-pending 05/21/18 07:00 PE: Gen: A&O x3, NAD Resp: unlabored resp on RA Abd: soft, nondistended, mild focal LLQ tenderness on palpation Problem List - Problems (1) Diverticulitis Assessment/Plan: patient with resolving diverticulitis, WBC now WNL and afebrile. -cont abx per med/ID -Advance to regular diet -OOB and up to chair for meals - reconsult surgery PRN evaluation and plan discussed with Dr Mcmillan Code(s): K57.92 - DVTRCLI OF INTEST, PART UNSP, W/O PERF OR ABSCESS W/O BLEED
[2018-05-21] MEDS ORDERED: PIPERACILLIN/TAZOBACTAM 3.375 GM VIAL IVPB ONE ×2 (09:35→17:16)
[2018-05-21] MEDS ORDERED: DEXTROSE 5%-WATER - 50 ML IVPB ONE ×2 (09:36→17:16)
[2018-05-21] MEDS: HEPARIN NA (PORCINE) 5,000 UNITS/ML 1ML VIAL SQ SCH ×2 (09:43→21:49)
--- NOTE | 2018-05-21 11:34 | PN ---
Physical Exam: SUBJECTIVE: Patient seen and examined. LLQ pain is better. Tolerating clears. OBJECTIVE: Vital Signs Period Temp Pulse Resp BP Sys/Wise Pulse Ox Last 24 Hr 97.6 F-98.9 F 65-79 18-20 142-149/76-93 97-99 GENERAL: The patient is awake, alert, and fully oriented, in no acute distress. LUNGS: Breath sounds equal, clear to auscultation bilaterally, no wheezes, no crackles, no accessory muscle use. HEART: Regular rate and rhythm, S1, S2 without murmur, rub or gallop. ABDOMEN: ++tenderness LLQ, +guarding EXTREMITIES: 2+ pulses, warm, well-perfused, no edema. NEUROLOGICAL: Cranial nerves II through XII grossly intact. Normal speech, gait not observed. Laboratory Results - last 24 hr 05/21/18 05/21/18 07:00 07:00 WBC 8.6 RBC 4.39 Hgb 13.9 Hct 41.2 MCV 93.8 MCH 31.8 MCHC 33.9 RDW 12.4 Plt Count 286 MPV 8.5 D Absolute Neuts (auto) 6.1 Neutrophils % 70.6 Lymphocytes % 17.6 D Monocytes % 8.4 Eosinophils % 2.5 D Basophils % 0.9 Sodium 136 Potassium 3.7 Chloride 104 Carbon Dioxide 24 Anion Gap 8 BUN 10 Creatinine 0.8 Creat Clearance w eGFR > 60 Random Glucose 94 Calcium 8.1 L Magnesium 2.1 Total Bilirubin 1.1 H AST 13 L ALT 17 Alkaline Phosphatase 92 Total Protein 5.8 L Albumin 2.6 L Active Medications Generic Name Dose Route Start Last Admin Trade Name Dong PRN Reason Stop Dose Admin Acetaminophen 650 mg 05/18/18 14:38 05/19/18 12:57 Tylenol - PO 650 mg Q4H PRN Administration PAIN LEVEL 1 - 3 Heparin Sodium (Porcine) 5,000 unit 05/18/18 22:00 05/21/18 09:43 Heparin - SQ 5,000 unit BID ARIADNA Administration Piperacillin Sod/Tazobactam 50 mls @ 100 mls/hr 05/19/18 10:00 05/21/18 09:43 Sod 3.375 gm/ Dextrose IVPB 100 mls/hr Q8H-IV ARIADNA Administration Protocol Sodium Chloride 1,000 mls @ 125 mls/hr 05/20/18 12:18 05/20/18 14:00 Normal Saline - IV 125 mls/hr ASDIR ARIADNA Administration Levothyroxine Sodium 125 mcg 05/19/18 07:00 05/21/18 05:59 Synthroid - PO 125 mcg DAILY@0700 ARIADNA Administration Ondansetron HCl 4 mg 05/18/18 14:17 05/19/18 19:56 Zofran Injection IVPUSH 4 mg Q6H PRN Administration NAUSEA AND/OR VOMITING ASSESSMENT/PLAN 58 year-old male with a PMH significant for hypothyroidism, admitted for sepsis secondary to acute diverticulitis. Sepsis secondary to acute diverticulitis --WBC 28.5, p114, acute diverticulitis on CT imaging on admission --WBC has trended to wnl, has remained afebrile --LLQ tenderness improved --continue Zosyn (day #4), blood cultures NGTD --ID following --surgery consult: conservative medical management Hypothyroidism --continue levothyroxine FEN Fluids: PO intake adequate Electrolytes: replete as indicated Nutrition: full liquids DVT prophylaxis: subq heparin Dispo: continues to require inpatient care. Full code. Visit type - Emergency Visit Emergency Visit: Yes ED Registration Date: 05/18/18 Care time: The patient presented to the Emergency Department on the above date and was hospitalized for further evaluation of their emergent condition. - New Patient This patient is new to me today: No - Critical Care Critical Care patient: No
--- NOTE | 2018-05-21 16:18 | PN ---
Progress Note (short form) - Note Progress Note: Patient feels better with less abdominal pain and no N/V/fever. Passing some stool and flatus. On IV antibiotics with improving WBCs Tolerating PO liquids with plans to advance diet. VSS Afebrile Abdomen soft +BS minimal LLQ tenderness and no mass/rebound (improved) less distended Impression: resolving acute diverticulitis Agree with advancing to soft or low residue diet (avoid fiber for at least several weeks) Continue antibiotics to complete a 10-14 day course (can switch to PO if continues to do well)
[2018-05-21] MEDS ORDERED: morphine SULFATE 4 MG/ML VIAL IM PRN (23:32)
[2018-05-21] MEDS ORDERED: diphenhydrAMINE HCL 25 MG CAPSULE (FP) PO PRN (23:33)
[2018-05-22] MEDS ORDERED: PIPERACILLIN/TAZOBACTAM 3.375 GM VIAL IVPB ONE ×2 (01:59→09:34)
[2018-05-22] MEDS ORDERED: DEXTROSE 5%-WATER - 50 ML IVPB ONE ×2 (01:59→09:34)
[2018-05-22] MEDS: PIPERACILLIN/TAZOB 3.375 GM 3.375 GM in DEXTROSE 5%-WATER - 50 ML IVPB SCH ×2 (02:21→09:41)
[2018-05-22] MEDS: LEVOTHYROXINE NA 125 MCG TABLET (FP) PO SCH (06:00)
[2018-05-22 06:19] VITALS: BP 150/83; PULSE 67; TEMP 97.7
[2018-05-22 08:23] LABS: BASO % 1.3 % (0-2.0); EOS % 2.9 % (0-4.5); HEMATOCRIT 44.5 % (35.4-49); HEMOGLOBIN 15.3 GM/dl (11.7-16.9); LYMPH % 15.2 % (8-40); MCH 32.2 pg (25.7-33.7); MCHC 34.2 g/dl (32.0-35.9); MEAN CELL VOLUME 94.1 fl (80-96); NEUT % 72.6 % (42.8-82.8); PLATELET COUNT 324 K/MM3 (134-434); RBC 4.73 M/mm3 (4.00-5.60); RDW 12.5 % (11.9-15.9); WHITE BLOOD COUNT 9.2 K/mm3 (4.0-10.8)
[2018-05-22 08:29] LABS: ALBUMIN 2.9 g/dl (3.4-5.0); ALK PHOS 95 U/L (45-117); ANION GAP 6 MMOL/L (8-16); BILIRUBIN,TOTAL 0.9 mg/dl (0.2-1); BLOOD UREA NITROGEN 9 mg/dl (7-18); CALCIUM 8.9 mg/dl (8.5-10); CHLORIDE 104 mmol/L (98-107); CO2 27 mmol/L (21-32); CREATININE 0.9 mg/dl (0.55-1.3); GLUCOSE,RANDOM 109 mg/dl (74-106); MAGNESIUM 2.1 mg/dL (1.8-2.4); POTASSIUM 4.3 mmol/L (3.5-5.1); SGOT/AST 25 U/L (15-37); SGPT/ALT 32 U/L (13-61); SODIUM 137 mmol/L (136-145); TOT PROT 6.2 g/dl (6.4-8.2)
--- NOTE | 2018-05-22 11:05 | DS ---
Physical Exam: SUBJECTIVE: Patient seen and examined. Feeling well, no abdominal pain, n/v, fevers/chills. Having normal BMs. Developed a rash on his back yesterday after starting prophylactic heparin - at that time patient recalled having a similar reaction after receiving AC following a hip surgery. He was given Benadryl. Rash has improved. He did not have ENT or respiratory symptoms at any time. OBJECTIVE: Vital Signs Period Temp Pulse Resp BP Sys/Wise Pulse Ox Last 24 Hr 97.4 F-98.2 F 67-80 16-19 144-155/73-88 97-99 PHYSICAL EXAM GENERAL: The patient is awake, alert, and fully oriented, in no acute distress. HEAD: Normal with no signs of trauma. EYES: PERRL, extraocular movements intact, sclera anicteric, conjunctiva clear. ENT: Ears normal, nares patent, oropharynx clear without exudates, moist mucous membranes. NECK: Trachea midline, full range of motion, supple. LUNGS: Breath sounds equal, clear to auscultation bilaterally, no wheezes, no crackles, no accessory muscle use. HEART: Regular rate and rhythm, S1, S2 without murmur, rub or gallop. ABDOMEN: Soft, nontender, nondistended, normoactive bowel sounds, no guarding, no rebound, no hepatosplenomegaly, no masses. EXTREMITIES: 2+ pulses, warm, well-perfused, no edema. NEUROLOGICAL: Cranial nerves II through XII grossly intact. Normal speech, gait not observed. PSYCH: Normal mood, normal affect. SKIN: Scattered maculopapular, blanching, erythematous rash to lower back. LABS Laboratory Results - last 24 hr 05/22/18 05/22/18 07:15 07:15 WBC 9.2 RBC 4.73 Hgb 15.3 Hct 44.5 MCV 94.1 MCH 32.2 MCHC 34.2 RDW 12.5 Plt Count 324 MPV 9.0 Absolute Neuts (auto) 6.7 Neutrophils % 72.6 Lymphocytes % 15.2 Monocytes % 8.0 Eosinophils % 2.9 Basophils % 1.3 Sodium 137 Potassium 4.3 Chloride 104 Carbon Dioxide 27 Anion Gap 6 L BUN 9 Creatinine 0.9 Creat Clearance w eGFR > 60 Random Glucose 109 H Calcium 8.9 Magnesium 2.1 Total Bilirubin 0.9 AST 25 ALT 32 Alkaline Phosphatase 95 Total Protein 6.2 L Albumin 2.9 L HOSPITAL COURSE: This is a 58 year-old male with a history of hypothyroidism admitted on 05/18 with abdominal pain. CTAP demonstrated acute diverticulitis without abscess or perforation. With WBC 28.5 and P 114, the patient also was diagnosed with sepsis. He was treated with 4 days of Zosyn. Blood cultures are NGTD. Surgery was consulted and recommended medical management. The patient improved and is now tolerating a full diet without abdominal pain. WBC is 9.2 and HR is 67. He has remained afebrile. He was followed by GI who today agrees with dc on Augmentin for a total of 10-14 days of antibiotics. The patient is amenable to this plan. Followup instructions and return precautions reviewed. Date of Admission:05/18/18 Date of Discharge: 05/22/18 Minutes to complete discharge: 45 Discharge Summary Reason For Visit: DIVERTICULITIS Current Active Problems Diverticulitis (Acute) Condition: Stable - Instructions Diet, Activity, Other Instructions: -Rest and stay well-hydrated -Eat a low-residue diet (instructions enclosed) -Follow up with GI and primary care (your own, or referrals for our providers enclosed) -Return here for any concerning symptoms, in particular: worsening abdominal pain, fever, worsening rash Referrals: Carroll Pompa MD [Staff Physician] - 1 Month (Gastroenterology) [facility] [place] [Provider Group] - 1 Week (Primary care) Disposition: HOME - Home Medications Comprehensive Discharge Medication List: Ambulatory Orders Levothyroxine [Synthroid -] 125 mcg PO DAILY 05/18/18 This patient is new to me today: Yes Date on this admission: 05/22/18 Emergency Visit: Yes ED Registration Date: 05/18/18 Care time: The patient presented to the Emergency Department on the above date and was hospitalized for further evaluation of their emergent condition. Critical Care patient: No - Discharge Referral [facility]erred to [facility] No
== END 2018-05-22 12:19 | disposition home or self-care (01) | DRG 872 ==
LOC: FER 05:12 → FM/S 12:16
PROVIDERS: ADMIT Internal Medicine; ATTEND Registered Nurse Emergency
DX: A41.9 Sepsis, unspecified organism (principal); K57.32 Diverticulitis of large intestine without perforation or abscess without bleeding; R10.32 Left lower quadrant pain; E03.9 Hypothyroidism, unspecified; D72.829 Elevated white blood cell count, unspecified
CPT/HCPCS: 36415; 74177-TC; 80053; 81003; 81015; 83605; 83690; 83735; 85025; 85027; 85610; 85730; 87040; 93005; 99284-25; J0131; J1644; J7030

== ENCOUNTER 2022-03-03 11:11 | Emergency (ER) | payer BC ==
[2022-03-03 11:33] VITALS: RESP 18; BMI 29.2
[2022-03-03] MEDS ORDERED: ACETAMINOPHEN 325 MG TABLET (FP) PO ONE (12:00)
[2022-03-03] MEDS ORDERED: ACETAMINOPHEN 325 MG TABLET (FP) ONE (12:03)
[2022-03-03 12:28] LABS: HEMATOCRIT 48.5 % (35.4-49); HEMOGLOBIN 16.6 G/dL (11.7-16.9); MCH 32.2 pg (25.7-33.7); MCHC 34.3 g/dl (32.0-35.9); MEAN CELL VOLUME 93.9 fl (80-96); MEAN PLT VOLUME 8.2 fl (7.5-11.1); PLATELET COUNT 367.5 10^3/uL (134-434); RBC 5.16 10^6/uL (4.00-5.60); RDW 13.5 % (11.9-15.9); WHITE BLOOD COUNT 16.4 10^3/uL (4.0-10.8)
[2022-03-03 12:36] LABS: ALBUMIN 3.8 g/dl (3.4-5.0); BILIRUBIN,TOTAL 1.3 mg/dl (0.2-1); CALCIUM 9.3 mg/dl (8.5-10); CREATININE 1.2 mg/dl (0.55-1.3); TOT PROT 7.9 g/dl (6.4-8.2)
[2022-03-03 12:39] LABS: PLATELET ESTIMATE ADEQUATE
[2022-03-03] MEDS ORDERED: LIDOCAINE HCL 2% (50ML VIAL) INF ONE (16:29)
[2022-03-03] MEDS ORDERED: LIDOCAINE HCL 2% (20ML MULTI-DOSE VIAL) ONE (16:33)
[2022-03-03 17:09] VITALS: BP 140/92; PULSE 100; TEMP 98
== END 2022-03-03 17:14 | disposition home or self-care (01) ==
LOC: FER 11:11
PROC: 0H98XZZ Drainage of Buttock Skin, External Approach (ICD-10-PCS; principal; 2022-03-03)
DX: L02.31 Cutaneous abscess of buttock (principal)
CPT/HCPCS: 36415; 74177-TC; 80053; 85025; 99285-25; Q9967

== ENCOUNTER 2022-03-05 09:34 | Emergency (ER) | payer BC ==
[2022-03-05 09:49] VITALS: BP 120/81; PULSE 88; RESP 18; TEMP 97.8; BMI 29.2
== END 2022-03-05 09:55 | disposition home or self-care (01) ==
LOC: FER 09:34
DX: Z48.00 Encounter for change or removal of nonsurgical wound dressing (principal)
CPT/HCPCS: 99281-25

== ENCOUNTER 2022-03-28 09:05 | Emergency (ER) | payer BC ==
[2022-03-28] MEDS ORDERED: morphine CARPU-JECT 2 MG/1 ML DISP.SYRIN IVPUSH ONE (09:10)
[2022-03-28] MEDS ORDERED: ONDANSETRON 4 MG/2 ML VIAL IVPB ONE (09:10)
[2022-03-28] MEDS ORDERED: FAMOTIDINE 20 MG/50 ML IVPB 20 MG in PREMIX 50 IVPB ONE (09:11)
[2022-03-28 09:19] VITALS: BP 132/93; PULSE 115; RESP 16; BMI 29.0
[2022-03-28] MEDS ORDERED: SODIUM CHLORIDE 0.9% 500 ML INFUS.BAG IV ONE (09:19)
[2022-03-28] MEDS ORDERED: morphine SULFATE 4 MG/ML VIAL ONE (09:21)
[2022-03-28] MEDS ORDERED: ONDANSETRON 4 MG/2 ML VIAL ONE (09:22)
[2022-03-28] MEDS ORDERED: FAMOTIDINE 20 MG/50 ML IVPB 20 MG/50 ML MG IVPB ONE (09:22)
[2022-03-28] MEDS ORDERED: ACETAMINOPHEN 1000 MG/100 ML BAG IVPB ONE (09:23)
[2022-03-28] MEDS ORDERED: ACETAMINOPHEN INJECTION 100 ML IVPB ONE (09:24)
[2022-03-28 10:01] LABS: HEMATOCRIT 43.2 % (35.4-49); HEMOGLOBIN 15.1 G/dL (11.7-16.9); MCH 32.5 pg (25.7-33.7); MEAN PLT VOLUME 8.3 fl (7.5-11.1); PLATELET COUNT 258.6 10^3/uL (134-434); RBC 4.65 10^6/uL (4.00-5.60); RDW 13.4 % (11.9-15.9); WHITE BLOOD COUNT 12.3 10^3/uL (4.0-10.8)
[2022-03-28 10:08] LABS: ALBUMIN 3.4 g/dl (3.4-5.0); BILIRUBIN,TOTAL 1.5 mg/dl (0.2-1); CALCIUM 8.6 mg/dl (8.5-10); CREATININE 1.2 mg/dl (0.55-1.3); TOT PROT 6.4 g/dl (6.4-8.2)
[2022-03-28 10:27] LABS: PLATELET ESTIMATE ADEQUATE
[2022-03-28 10:59] VITALS: TEMP 100.1
[2022-03-28] MEDS ORDERED: PIPERACILLIN/TAZOB 4.5 GM 4.5 GM in DEXTROSE 5%-WATER 100 ML IVPB ONE (11:43)
[2022-03-28] MEDS ORDERED: PIPERACILLIN/TAZOBACTAM 4.5 GM VIAL IVPB ONE (11:48)
== END 2022-03-28 12:40 | disposition home or self-care (01) ==
LOC: FER 09:05
PROC: 3E0333Z Introduction of Anti-inflammatory into Peripheral Vein, Percutaneous Approach (ICD-10-PCS; principal; 2022-03-28)
PROC: 3E033GC Introduction of Other Therapeutic Substance into Peripheral Vein, Percutaneous Approach (ICD-10-PCS; 2022-03-28)
PROC: 3E033GC Introduction of Other Therapeutic Substance into Peripheral Vein, Percutaneous Approach (ICD-10-PCS; 2022-03-28)
PROC: 3E033NZ Introduction of Analgesics, Hypnotics, Sedatives into Peripheral Vein, Percutaneous Approach (ICD-10-PCS; 2022-03-28)
DX: K57.92 Diverticulitis of intestine, part unspecified, without perforation or abscess without bleeding (principal)
CPT/HCPCS: 36415; 74177-TC; 80053; 81003; 81015; 83690; 85027; 93005; 99285-25; Q9967